=== PATIENT | male | born 1955 | race Caucasian/White ===

== ENCOUNTER 2022-07-29 10:02 | Emergency (ER) | payer BC, OTHER ==
[~2022-07-29] VITALS: Ht 175.3 cm; Wt 89.8 kg
[~2022-07-29 10:02] MED LIST: AMBIEN10 MG PO; CARISOPRODOL; CARISOPRODOL350 MG PO; Harvoni PO; LOSARTAN POTASS25 MG PO; VICODIN ES TAB1 EACH PO; [UNRECOGNIZED DRUG - OTHER] PO
[2022-07-29 10:11] VITALS: O2SAT 98
[2022-07-29] MEDS ORDERED: ULTRAM 50MG50 MG PO (11:52)
[2022-07-29] MEDS ORDERED: BACTRIM DS TAB1 EACH PO (11:52)
[2022-07-29] MEDS ORDERED: CEPHALEXIN500 MG PO (11:52)
[2022-07-29] MEDS: TETANUS/DIPHTHERIA TOX ADULT 0.5 ML SYR IM ONE ×2 (12:24→13:00)
== END 2022-07-29 13:08 | disposition home or self-care (01) ==
LOC: ER 10:08
DX: S61.411A Laceration without foreign body of right hand, initial encounter (principal); W01.0XXA Fall on same level from slipping, tripping and stumbling without subsequent striking against object, initial encounter; Y93.01 Activity, walking, marching and hiking; Y92.89 Other specified places as the place of occurrence of the external cause; B19.20 Unspecified viral hepatitis C without hepatic coma
CPT/HCPCS: 90471; 90714; 99283